=== PATIENT | male | born 1955 | race Hispanic/Latino ===

== ENCOUNTER 2017-03-28 09:37 | Emergency (ER) | payer SELFPAY ==
[2017-03-28] MEDS ORDERED: Ketorolac Tromethamine 60 MG/2 ML VIAL ONE (09:52)
== END 2017-03-28 10:05 | disposition home or self-care (01) ==
LOC: BURERS 09:37
DX: J11.1 Influenza due to unidentified influenza virus with other respiratory manifestations (principal); I10 Essential (primary) hypertension
CPT/HCPCS: 96372; J1885